=== PATIENT | male | born 1935 | race Two or more races ===

== ENCOUNTER 2019-05-25 15:35 | Emergency (ER) | payer OTHER ==
[~2019-05-25] VITALS: Ht 175.3 cm; Wt 84.4 kg
[2019-05-25] MEDS ORDERED: DETROL LA4 MG PO (15:53)
[2019-05-25] MEDS ORDERED: PEPCID AC20 MG (15:53)
[2019-05-25] MEDS ORDERED: LIPITOR40 M1 PO (15:53)
[2019-05-25] MEDS ORDERED: ARICEPT10 MG (15:54)
[2019-05-25] MEDS ORDERED: TOPROL XL25 M1 PO (15:54)
[2019-05-25] MEDS ORDERED: XARELTO20 MG PO (15:54)
[2019-05-25] MEDS ORDERED: AMOX-CLAV 875-1 EACH PO (18:44)
[2019-05-25] MEDS ORDERED: INTESTINEX680 M1 PO (18:44)
[2019-05-25] MEDS ORDERED: ORPHENADRINE C100 MG PO (18:44)
== END 2019-05-25 20:32 | disposition home or self-care (01) ==
LOC: ER 15:35
DX: S50.812A Abrasion of left forearm, initial encounter (principal); W18.09XA Striking against other object with subsequent fall, initial encounter; Y93.89 Activity, other specified; Y92.018 Other place in single-family (private) house as the place of occurrence of the external cause; Y99.8 Other external cause status

== ENCOUNTER 2023-10-18 09:02 | Outpatient (CLI) | payer OTHER ==
[~2023-10-18 09:02] MED LIST: AMOX-CLAV 875-1 EACH PO; ARICEPT10 MG; DETROL LA4 MG PO; INTESTINEX680 M1 PO; LIPITOR40 M1 PO; ORPHENADRINE C100 MG PO; PEPCID AC20 MG; TOPROL XL25 M1 PO; XARELTO20 MG PO
== END 2023-10-18 09:12 | disposition home or self-care (01) ==
LOC: RX STUDY 09:02
DX: R13.10 Dysphagia, unspecified (principal)